=== PATIENT | female | born 2000 | race Caucasian/White ===

== ENCOUNTER 2021-02-01 20:16 | Emergency (ER) | payer BC ==
[~2021-02-01] VITALS: Ht 170.2 cm; Wt 89.1 kg
[2021-02-01 20:22] VITALS: TEMP 97.8
[2021-02-01 20:43] VITALS: BP 122/74; PULSE 102
== END 2021-02-01 20:43 | disposition home or self-care (01) ==
LOC: COL.ER 20:16
DX: Z48.01 Encounter for change or removal of surgical wound dressing (principal); Z98.890 Other specified postprocedural states